=== PATIENT | female | born 1970 | race Caucasian/White ===

== ENCOUNTER 2017-01-19 03:56 | Emergency (ER) | payer OTHER ==
[2017-01-19 03:04] LABS: BASOPHILS 0.6 %; BASOPHILS ABSOLUTE 0.05 10/3/uL (0.0-0.16); EOSINOPHILS 3.3 %; EOSINOPHILS ABSOLUTE 0.28 10/3/uL (0.0-0.53); ER CBC TAT 0 Hrs 03 Mins; HEMATOCRIT 40.4 % (36.0-48.0); HEMOGLOBIN 14.2 g/dL (12.0-16.0); IMMATURE GRANULOCYTES 0.4 %; IMMATURE GRANULOCYTES ABSOLUTE 0.03 10/3/uL (0.0-0.11); LYMPHOCYTES ABSOLUTE 3.39 10/3/uL (0.67-4.30); MANUAL DIFF NO %; MEAN CORPUS HGB CONC 35.1 g/dL (32.0-36.0); MEAN CORPUSCULAR HEMOGLOB 32.1 pg (26.0-34.0); MEAN CORPUSCULAR VOLUME 91.4 fL (80-100); MEAN PLATELET VOLUME 9.7 fL (9.2-13.0); MONOCYTES 5.8 %; MONOCYTES ABSOLUTE 0.49 10/3/uL (0.21-1.20); NEUTROPHILS 49.9 %; NEUTROPHILS ABSOLUTE 4.24 10/3/uL (2.02-8.40); PLATELET COUNT 225 10/3/uL (150-400); RBC DISTRIBUTION WIDTH 14.9 % (12.0-16.0); RED CELL COUNT 4.42 10/6/uL (4.0-5.6); WHITE BLOOD CELLS 8.5 10/3/uL (4.5-10.5)
[2017-01-19 03:09] LABS: ASCORBIC ACID (UR NOT ORDER) NEG (NEG); BILIRUBIN, URINE NEGATIVE (NEG); ER URINALYSIS TAT 0 Hrs 00 Mins; KETONE, URINE NEGATIVE (NEG); LEUKOCYTE ESTERASE(NOT OR SMALL (NEG); WBC (NOT ORDERED) (RFLEX) 4 (0-5)
[2017-01-19 03:10] LABS: NITRITE (URINE) NEG (NEG)
[2017-01-19 03:22] LABS: CALCIUM, SERUM 8.9 MG/DL (8.5-10.4); CHLORIDE, SERUM 105 MMOL/L (96-112); CO2 (CARBON DIOXIDE) 26 MMOL/L (24-34); CREATININE 0.98 MG/DL (0.55-1.02); GFR AFRICAN AMERICAN 80 ML/MIN (>=60); GFR NON AFRICAN AMERICAN 69 ML/MIN (>=60); POTASSIUM, SERUM 3.8 MMOL/L (3.5-5.3); SGOT(AST) 27 U/L (5-40); SGPT(ALT) 31 U/L (5-65); SODIUM, SERUM 141 MMOL/L (135-148); TOTAL BILIRUBIN 0.3 MG/DL (0-1.2)
[2017-01-19 03:23] LABS: A/G RATIO 1.1 (0.7-1.9); ALBUMIN 4.6 G/DL (3.5-5.0); ALKALINE PHOSPHATASE 113 U/L (45-117); BUN (BLOOD UREA NITROGEN) 9 MG/DL (6-23); GLOBULIN 4.3 G/DL (2.5-4.1); GLUCOSE, SERUM 117 MG/DL (60-99); TOTAL PROTEIN 8.9 G/DL (6.0-8.5)
[~2017-01-19 03:56] MED LIST: ABILIFY30 MG PO; AMARYL4 PO; AMB10 PO; ATV1 PO; BEN25 PO; BENTYL10 PO; BUTORPHANOL10 MG/M1; BUTORPHANOL10 MG/M1 PO; C5 PO; CEFT5 PO; COREG3 PO; COUMADIN7.5 MG PO; COZAAR100 MG PO; DEPAKOT500 PO; DIL2TAB PO; DIOV160 PO; DOMPERIDONE XX; DSS PO; EFFEX75 PO; EFFEXXR75 PO; ENDOCET1 TA1 PO; ENDOCET1 TA3 PO; FLEX PO; HCTZ25B PO; HUMALOGMIX SC; INSNOVR SC; LAMICTAL150 MG PO; LAMICTAL200 MG PO; LAMICTAL25 PO; LANTUS SC; LIPITOR10 PO; LORTAB10 PO; MAXALT10 MG PO; MELATONIN5 M1 PO; METHOC750B PO; MULTIVIT/MIN PO; MULTIVITAMI1 PO; NAP500 PO; NATURA2 OPH; NEO-OINT TOP; NEUR300 PO; NEUR600 PO; NEXIUM40 PO; NORCO1 TAB PO; NORV5 PO; NOVOLOG SC; NOVOPEN SC; NOVOPENMIX SC; PERCOCET1 TA2 PO; PERCOCET1 TA4 PO; PR25 PO; PR25R PR; PRILOSEC40 MG PO; PROTONIX PO; PROTONIX20 MG PO; PYR200 PO; RANITADINE; RANITIDINE300 MG PO; REG PO; SEROQUEL XR150 MG PO; SEROQUEL XR200 MG PO; SEROQUEL XR300 MG PO; SEROQUEL400 MG PO; STADOLNS NAS; SUCR PO; TEG200 PO; TOPAMAX25 PO; TRAZ100 PO; TRAZODONE150 MG PO; VENLAFAXINE ER 75MG; VIB100 PO; WELCHOL 625 MG625 MG PO; WELCHOL625 MG OR; WELL100 PO; X5 PO; XANAX1 MG PO; Z10 PO; ZANTAC300 MG PO; ZETIA PO; ZYPREXA ZYDI20 MG PO
[2017-02-02] MEDS ORDERED: NEUR300 PO (01:31)
[2017-02-02] MEDS ORDERED: NOVOLOG SC ×2 (01:33→03:08)
[2017-02-02] MEDS ORDERED: TOUJEO SC ×2 (01:33→03:06)
[2017-02-02] MEDS ORDERED: ATV.5 PO ×2 (01:34→03:09)
[2017-02-02] MEDS ORDERED: KEPPRA500 PO ×2 (01:34→03:09)
[2017-02-04] MEDS ORDERED: FLUCON1 PO (15:33)
[2017-03-26] MEDS ORDERED: BEN25 PO (20:02)
[2017-03-26] MEDS ORDERED: TEARS PURE OPH (20:02)
[2017-03-26] MEDS ORDERED: MULTIVIT/MIN PO (20:02)
[2017-03-26] MEDS ORDERED: COZAAR100 MG PO (20:03)
[2017-03-26] MEDS ORDERED: KEPPRA500 PO (20:03)
[2017-03-26] MEDS ORDERED: ZANTAC300 MG PO (20:03)
[2017-03-26] MEDS ORDERED: PR25 PO (20:03)
[2017-03-26] MEDS ORDERED: PROTONIX20 MG PO (20:04)
[2017-03-26] MEDS ORDERED: LAMICTAL150 MG PO (20:04)
[2017-03-26] MEDS ORDERED: NEUR400 PO ×2 (20:04)
[2017-03-26] MEDS ORDERED: MELATONIN5 M1 PO (20:05)
[2017-03-26] MEDS ORDERED: TOUJEO SC (20:05)
[2017-03-26] MEDS ORDERED: MACRODANTIN 10100 MG PO (20:05)
[2017-03-26] MEDS ORDERED: ATV1 PO (20:06)
[2017-03-26] MEDS ORDERED: NOVOLOG SC (20:06)
[2017-03-29] MEDS ORDERED: NORCO1 TA1 PO (11:23)
[2017-03-29] MEDS ORDERED: MONODOX100 MG PO (11:24)
[2017-03-29] MEDS ORDERED: ACET500CAP PO (11:41)
== END 2017-01-19 04:30 | disposition home or self-care (01) ==
LOC: ER 03:56
PROVIDERS: Specialist
DX: R10.9 Unspecified abdominal pain (principal); R31.9 Hematuria, unspecified; G89.29 Other chronic pain; F17.200 Nicotine dependence, unspecified, uncomplicated; Z87.442 Personal history of urinary calculi; E11.9 Type 2 diabetes mellitus without complications; I10 Essential (primary) hypertension; Z88.8 Allergy status to other drugs, medicaments and biological substances; Z88.2 Allergy status to sulfonamides; Z88.0 Allergy status to penicillin; Z91.010 Allergy to peanuts; Z88.6 Allergy status to analgesic agent; Z79.899 Other long term (current) drug therapy; Z79.4 Long term (current) use of insulin
CPT/HCPCS: 74176; 80053; 81001; 85025; 87086; 96374; 96376; 99284; J2550

== ENCOUNTER → 2017-02-01 22:32 | Emergency (ER) | payer OTHER ==
[2017-02-01 17:21] LABS: BASOPHILS 0.6 %; BASOPHILS ABSOLUTE 0.06 10/3/uL (0.0-0.16); EOSINOPHILS 3.6 %; EOSINOPHILS ABSOLUTE 0.37 10/3/uL (0.0-0.53); ER CBC TAT 0 Hrs 03 Mins; HEMATOCRIT 38.8 % (36.0-48.0); HEMOGLOBIN 13.6 g/dL (12.0-16.0); IMMATURE GRANULOCYTES 0.5 %; IMMATURE GRANULOCYTES ABSOLUTE 0.05 10/3/uL (0.0-0.11); LYMPHOCYTES 35.2 %; LYMPHOCYTES ABSOLUTE 3.63 10/3/uL (0.67-4.30); MEAN CORPUS HGB CONC 35.1 g/dL (32.0-36.0); MEAN CORPUSCULAR HEMOGLOB 32.2 pg (26.0-34.0); MEAN CORPUSCULAR VOLUME 91.9 fL (80-100); MEAN PLATELET VOLUME 9.7 fL (9.2-13.0); MONOCYTES ABSOLUTE 0.72 10/3/uL (0.21-1.20); NEUTROPHILS 53.1 %; NEUTROPHILS ABSOLUTE 5.47 10/3/uL (2.02-8.40); PLATELET COUNT 229 10/3/uL (150-400); RBC DISTRIBUTION WIDTH 14.2 % (12.0-16.0); RED CELL COUNT 4.22 10/6/uL (4.0-5.6); WHITE BLOOD CELLS 10.3 10/3/uL (4.5-10.5)
[2017-02-01 17:26] LABS: MANUAL DIFF NO %
[2017-02-01 17:28] LABS: ASCORBIC ACID (UR NOT ORDER) NEG (NEG); BILIRUBIN, URINE NEGATIVE (NEG); ER URINALYSIS TAT 0 Hrs 12 Mins; KETONE, URINE NEGATIVE (NEG); LEUKOCYTE ESTERASE(NOT OR LARGE (NEG)
[2017-02-01 17:29] LABS: NITRITE (URINE) POS (NEG); WBC (NOT ORDERED) (RFLEX) > 182 (0-5)
[2017-02-01 17:38] LABS: A/G RATIO 1.2 (0.7-1.9); ALBUMIN 4.4 G/DL (3.5-5.0); ALKALINE PHOSPHATASE 95 U/L (45-117); BUN (BLOOD UREA NITROGEN) 11 MG/DL (6-23); CALCIUM, SERUM 8.6 MG/DL (8.5-10.4); CHLORIDE, SERUM 104 MMOL/L (96-112); CO2 (CARBON DIOXIDE) 29 MMOL/L (24-34); CREATININE 0.73 MG/DL (0.55-1.02); GFR AFRICAN AMERICAN 114 ML/MIN (>=60); GFR NON AFRICAN AMERICAN 98 ML/MIN (>=60); GLOBULIN 3.7 G/DL (2.5-4.1); GLUCOSE, SERUM 121 MG/DL (60-99); POTASSIUM, SERUM 4.2 MMOL/L (3.5-5.3); SGOT(AST) 27 U/L (5-40); SGPT(ALT) 41 U/L (5-65); SODIUM, SERUM 138 MMOL/L (135-148); TOTAL BILIRUBIN 0.4 MG/DL (0-1.2); TOTAL PROTEIN 8.1 G/DL (6.0-8.5)
[~2017-02-01 22:32] MED LIST changes: +ACET500CAP PO; +ATV.5 PO; +FLUCON1 PO; +KEPPRA500 PO; +MACRODANTIN 10100 MG PO; +MONODOX100 MG PO; +NEUR400 PO; +NORCO1 TA1 PO; +TEARS PURE OPH; +TOUJEO SC
== END | disposition left against medical advice (07) ==
LOC: ER 22:32
PROVIDERS: Emergency Medicine
DX: R10.9 Unspecified abdominal pain (principal); R50.9 Fever, unspecified; Z53.21 Procedure and treatment not carried out due to patient leaving prior to being seen by health care provider
CPT/HCPCS: 80053; 81001; 82962; 83690; 85025; 87086

== ENCOUNTER 2017-02-17 03:55 | Emergency (ER) | payer OTHER ==
[~2017-02-17 03:55] MED LIST changes: -ACET500CAP PO; -MACRODANTIN 10100 MG PO; -MONODOX100 MG PO; -NEUR400 PO; -NORCO1 TA1 PO; -TEARS PURE OPH
[2017-02-17 04:08] LABS: BASOPHILS 0.6 %; BASOPHILS ABSOLUTE 0.05 10/3/uL (0.0-0.16); EOSINOPHILS 3.5 %; EOSINOPHILS ABSOLUTE 0.29 10/3/uL (0.0-0.53); HEMATOCRIT 39.1 % (36.0-48.0); HEMOGLOBIN 13.8 g/dL (12.0-16.0); IMMATURE GRANULOCYTES 0.2 %; IMMATURE GRANULOCYTES ABSOLUTE 0.02 10/3/uL (0.0-0.11); LYMPHOCYTES 38.9 %; LYMPHOCYTES ABSOLUTE 3.25 10/3/uL (0.67-4.30); MEAN CORPUS HGB CONC 35.3 g/dL (32.0-36.0); MEAN CORPUSCULAR HEMOGLOB 31.8 pg (26.0-34.0); MEAN PLATELET VOLUME 10.1 fL (9.2-13.0); MONOCYTES 8.3 %; MONOCYTES ABSOLUTE 0.69 10/3/uL (0.21-1.20); NEUTROPHILS 48.5 %; NEUTROPHILS ABSOLUTE 4.05 10/3/uL (2.02-8.40); PLATELET COUNT 246 10/3/uL (150-400); RBC DISTRIBUTION WIDTH 13.5 % (12.0-16.0); RED CELL COUNT 4.34 10/6/uL (4.0-5.6); WHITE BLOOD CELLS 8.4 10/3/uL (4.5-10.5)
[2017-02-17 04:09] LABS: ER CBC TAT 0 Hrs 05 MinsNP; MANUAL DIFF NO %; MEAN CORPUSCULAR VOLUME 90.1 fL (80-100)
[2017-02-17 04:21] LABS: ASCORBIC ACID (UR NOT ORDER) NEG (NEG); BILIRUBIN, URINE NEGATIVE (NEG); ER URINALYSIS TAT 0 Hrs 00 Mins; KETONE, URINE NEGATIVE (NEG); LEUKOCYTE ESTERASE(NOT OR SMALL (NEG); WBC (NOT ORDERED) (RFLEX) 9 (0-5)
[2017-02-17 04:22] LABS: NITRITE (URINE) NEG (NEG)
[2017-02-17 04:25] LABS: A/G RATIO 1.1 (0.7-1.9); ALBUMIN 4.2 G/DL (3.5-5.0); BUN (BLOOD UREA NITROGEN) 10 MG/DL (6-23); CALCIUM, SERUM 8.7 MG/DL (8.5-10.4); CHLORIDE, SERUM 105 MMOL/L (96-112); CO2 (CARBON DIOXIDE) 26 MMOL/L (24-34); CREATININE 0.76 MG/DL (0.55-1.02); GFR AFRICAN AMERICAN 108 ML/MIN (>=60); GFR NON AFRICAN AMERICAN 93 ML/MIN (>=60); GLOBULIN 3.7 G/DL (2.5-4.1); GLUCOSE, SERUM 212 MG/DL (60-99); POTASSIUM, SERUM 4.6 MMOL/L (3.5-5.3); SGPT(ALT) 30 U/L (5-65); SODIUM, SERUM 138 MMOL/L (135-148); TOTAL BILIRUBIN 0.5 MG/DL (0-1.2); TOTAL PROTEIN 7.9 G/DL (6.0-8.5)
[2017-02-17 04:26] LABS: ALKALINE PHOSPHATASE 121 U/L (45-117); SGOT(AST) 28 U/L (5-40)
[2017-03-26] MEDS ORDERED: BEN25 PO (20:02)
[2017-03-26] MEDS ORDERED: TEARS PURE OPH (20:02)
[2017-03-26] MEDS ORDERED: MULTIVIT/MIN PO (20:02)
[2017-03-26] MEDS ORDERED: ZANTAC300 MG PO (20:03)
[2017-03-26] MEDS ORDERED: COZAAR100 MG PO (20:03)
[2017-03-26] MEDS ORDERED: KEPPRA500 PO (20:03)
[2017-03-26] MEDS ORDERED: PR25 PO (20:03)
[2017-03-26] MEDS ORDERED: NEUR400 PO ×2 (20:04)
[2017-03-26] MEDS ORDERED: LAMICTAL150 MG PO (20:04)
[2017-03-26] MEDS ORDERED: PROTONIX20 MG PO (20:04)
[2017-03-26] MEDS ORDERED: TOUJEO SC (20:05)
[2017-03-26] MEDS ORDERED: MACRODANTIN 10100 MG PO (20:05)
[2017-03-26] MEDS ORDERED: MELATONIN5 M1 PO (20:05)
[2017-03-26] MEDS ORDERED: ATV1 PO (20:06)
[2017-03-26] MEDS ORDERED: NOVOLOG SC (20:06)
[2017-03-29] MEDS ORDERED: NORCO1 TA1 PO (11:23)
[2017-03-29] MEDS ORDERED: MONODOX100 MG PO (11:24)
[2017-03-29] MEDS ORDERED: ACET500CAP PO (11:41)
== END 2017-02-17 05:26 | disposition home or self-care (01) ==
LOC: ER 03:55
PROVIDERS: Nurse Practitioner Acute Care
DX: R10.9 Unspecified abdominal pain (principal); R11.2 Nausea with vomiting, unspecified; F17.200 Nicotine dependence, unspecified, uncomplicated; J45.909 Unspecified asthma, uncomplicated; F31.9 Bipolar disorder, unspecified; F41.9 Anxiety disorder, unspecified; E11.9 Type 2 diabetes mellitus without complications; Z88.0 Allergy status to penicillin; Z88.1 Allergy status to other antibiotic agents; Z88.2 Allergy status to sulfonamides; Z88.5 Allergy status to narcotic agent; Z88.8 Allergy status to other drugs, medicaments and biological substances; Z79.4 Long term (current) use of insulin; Z79.899 Other long term (current) drug therapy
CPT/HCPCS: 80053; 81001; 83605; 85025; 87040; 87086; 87150; 96374; 99284; A9270-GY; J2550

== ENCOUNTER 2017-02-24 23:26 | Emergency (ER) | payer OTHER ==
[2017-02-24 20:30] LABS: BASOPHILS 0.7 %; BASOPHILS ABSOLUTE 0.05 10/3/uL (0.0-0.16); EOSINOPHILS 4.1 %; ER CBC TAT 0 Hrs 08 Mins; HEMATOCRIT 36.2 % (36.0-48.0); HEMOGLOBIN 12.7 g/dL (12.0-16.0); IMMATURE GRANULOCYTES 0.7 %; IMMATURE GRANULOCYTES ABSOLUTE 0.05 10/3/uL (0.0-0.11); LYMPHOCYTES 37.3 %; LYMPHOCYTES ABSOLUTE 2.71 10/3/uL (0.67-4.30); MANUAL DIFF NO %; MEAN CORPUS HGB CONC 35.1 g/dL (32.0-36.0); MEAN CORPUSCULAR HEMOGLOB 32.1 pg (26.0-34.0); MEAN CORPUSCULAR VOLUME 91.4 fL (80-100); MEAN PLATELET VOLUME 9.8 fL (9.2-13.0); MONOCYTES 8.5 %; MONOCYTES ABSOLUTE 0.62 10/3/uL (0.21-1.20); NEUTROPHILS 48.7 %; NEUTROPHILS ABSOLUTE 3.53 10/3/uL (2.02-8.40); PLATELET COUNT 223 10/3/uL (150-400); RBC DISTRIBUTION WIDTH 13.6 % (12.0-16.0); RED CELL COUNT 3.96 10/6/uL (4.0-5.6); WHITE BLOOD CELLS 7.3 10/3/uL (4.5-10.5)
[2017-02-24 20:46] LABS: BUN (BLOOD UREA NITROGEN) 8 MG/DL (6-23); CALCIUM, SERUM 9.1 MG/DL (8.5-10.4); CHLORIDE, SERUM 101 MMOL/L (96-112); CREATININE 0.74 MG/DL (0.55-1.02); GFR AFRICAN AMERICAN 112 ML/MIN (>=60); GFR NON AFRICAN AMERICAN 96 ML/MIN (>=60); POTASSIUM, SERUM 4.2 MMOL/L (3.5-5.3); SODIUM, SERUM 138 MMOL/L (135-148)
[2017-02-24 20:47] LABS: CO2 (CARBON DIOXIDE) 32 MMOL/L (24-34); GLUCOSE, SERUM 146 MG/DL (60-99)
[2017-02-24 20:57] LABS: ASCORBIC ACID (UR NOT ORDER) NEG (NEG); BILIRUBIN, URINE NEGATIVE (NEG); KETONE, URINE NEGATIVE (NEG); LEUKOCYTE ESTERASE(NOT OR TRACE (NEG); NITRITE (URINE) NEG (NEG); WBC (NOT ORDERED) (RFLEX) 7 (0-5)
[2017-02-24 20:58] LABS: ER URINALYSIS TAT 0 Hrs 35 Mins
[2017-03-26] MEDS ORDERED: BEN25 PO (20:02)
[2017-03-26] MEDS ORDERED: MULTIVIT/MIN PO (20:02)
[2017-03-26] MEDS ORDERED: TEARS PURE OPH (20:02)
[2017-03-26] MEDS ORDERED: COZAAR100 MG PO (20:03)
[2017-03-26] MEDS ORDERED: KEPPRA500 PO (20:03)
[2017-03-26] MEDS ORDERED: PR25 PO (20:03)
[2017-03-26] MEDS ORDERED: ZANTAC300 MG PO (20:03)
[2017-03-26] MEDS ORDERED: LAMICTAL150 MG PO (20:04)
[2017-03-26] MEDS ORDERED: PROTONIX20 MG PO (20:04)
[2017-03-26] MEDS ORDERED: NEUR400 PO ×2 (20:04)
[2017-03-26] MEDS ORDERED: TOUJEO SC (20:05)
[2017-03-26] MEDS ORDERED: MACRODANTIN 10100 MG PO (20:05)
[2017-03-26] MEDS ORDERED: MELATONIN5 M1 PO (20:05)
[2017-03-26] MEDS ORDERED: NOVOLOG SC (20:06)
[2017-03-26] MEDS ORDERED: ATV1 PO (20:06)
[2017-03-29] MEDS ORDERED: NORCO1 TA1 PO (11:23)
[2017-03-29] MEDS ORDERED: MONODOX100 MG PO (11:24)
[2017-03-29] MEDS ORDERED: ACET500CAP PO (11:41)
== END 2017-02-24 23:45 | disposition home or self-care (01) ==
LOC: ER 23:26
PROVIDERS: Hospitalist
DX: R10.9 Unspecified abdominal pain (principal); F31.9 Bipolar disorder, unspecified; F17.200 Nicotine dependence, unspecified, uncomplicated; Z88.6 Allergy status to analgesic agent; Z88.2 Allergy status to sulfonamides; Z88.5 Allergy status to narcotic agent; Z88.8 Allergy status to other drugs, medicaments and biological substances; Z91.010 Allergy to peanuts; Z79.4 Long term (current) use of insulin; Z79.899 Other long term (current) drug therapy
CPT/HCPCS: 74000; 80048; 81001; 85025; 96372; 99284; J2550